=== PATIENT | female | born 1980 | race Two or more races ===

== ENCOUNTER 2019-07-01 10:42 | Emergency (ER) | payer BC ==
[~2019-07-01] VITALS: Ht 165.1 cm; Wt 80.5 kg
[2019-07-01] MEDS ORDERED: ONDANSETRON PF 4 MG/2 ML VIAL. IVP ONE (11:00)
[2019-07-01] MEDS ORDERED: IV NORMAL SALINE 1,000ML 1,000 ML IV ONE (11:00)
[2019-07-01 11:21] VITALS: BP 159/90
[2019-07-01 11:34] LABS: BASO # 0.1 x10^3/uL (0.0-0.2); BASO % 1 % (0-3); EOS % 0 % (0-3); HEMOGLOBIN 14.4 g/dL (12.0-15.5); LYMPH # 1.7 x10^3/uL (1.0-4.8); LYMPH % 10 % (24-48); MEAN CORPUSCULAR HEMOGLOBIN 31 pg (25-35); MEAN CORPUSCULAR HGB CONC 34 g/dL (31-37); MEAN CORPUSCULAR VOLUME 90 fL (79-100); MONO # 0.7 x10^3/uL (0.0-1.1); MONO % 4 % (0-9); NEUT % 85 % (31-73); PLATELET COUNT 317 x10^3/uL (140-400); RED BLOOD COUNT 4.67 x10^6/uL (3.50-5.40); RED CELL DISTRIBUTION WIDTH 13.4 % (11.5-14.5); WHITE BLOOD COUNT 16.6 x10^3/uL (4.0-11.0)
--- NOTE | 2019-07-01 11:39 | PHYS DOC ---
Adult General Chief Complaint Chief Complaint: VOMITING IN HPI HPI Patient is a 38-year-old G1, P0 estimated 14 weeks gestation who presents with nausea and vomiting for the past 24 hours symptoms began while traveling from [facility] to [place]. Patient was on a flight for 18 hours. Reports motion sickness and likely morning sickness. Patient has been able to keep fluids or food down despite taking scopolamine and Zofran B6 and Unisom. Denies dizziness lightheadedness. Reports only abdominal pain with vomiting. No flank pain. No urinary frequency urgency. No diarrhea. No other acute symptoms or complaints. [] Review of Systems Review of Systems Review of symptoms as per HPI. All other review of symptoms are negative. All other systems were reviewed and found to be within normal limits, except as documented in this note. Current Medications Current Medications Current Medications Medications (Trade) Dose Ordered Sig/Saurav Start Time Stop Time Status Last Admin Dose Admin Ondansetron HCl (Zofran) 8 mg 1X ONCE 07/01/19 11:00 07/01/19 11:21 DC 07/01/19 11:00 8 MG Sodium Chloride 1,000 ml @ 1,000 mls/hr 1X ONCE 07/01/19 11:00 07/01/19 11:59 07/01/19 11:14 1,000 MLS/HR Allergies Allergies Allergies Coded Allergies Type Severity Reaction Last Updated Verified No Known Drug Allergies 07/01/19 No Physical Exam Physical Exam Constitutional: Well developed, well nourished, no acute distress, non-toxic appearance. [] HENT: Normocephalic, atraumatic, bilateral external ears normal, oropharynx moist,, nose normal. [] Eyes: PERRLA, EOMI, conjunctiva normal, no discharge. [] Neck: Normal range of motion, no tenderness, supple, no stridor. [] Cardiovascular:Heart rate regular rhythm, no murmur [] Lungs & Thorax: Bilateral breath sounds clear to auscultation [] Abdomen: Bowel sounds normal, soft, no tenderness. [] Skin: Warm, dry, no erythema, no rash. [] Back: No tenderness. [] Extremities: No tenderness, no edema. [] Neurologic: Alert and oriented X 3, normal motor function, normal sensory function, no focal deficits noted. [] Psychologic: Affect normal, judgement normal, mood normal. [] EKG EKG [] Radiology/Procedures Radiology/Procedures [] Course & Med Decision Making Course & Med Decision Making Pertinent Labs and Imaging studies reviewed. (See chart for details) [IV fluids antiemetics given. Patient able to tolerate oral intake. Abdomen soft nontender. Labs reviewed and reassuring. We will continue supportive treatment with PCP/OB follow-up. Return precautions reviewed] Dragon Disclaimer Dragon Disclaimer This electronic medical record was generated, in whole or in part, using a voice recognition dictation system. Departure Departure: Impression: Primary Impression: Abdominal pain Additional Impression: Nausea & vomiting Disposition: 01 HOME, SELF-CARE Condition: STABLE Referrals: [facility] (PCP) Patient Instructions: Nausea and Vomiting, [id number] Additional Instructions: Please continue home nausea medications. Drink clear liquids and advance to soft mechanical diet as tolerated. Follow-up with your local PCP and/or OB as scheduled. Return to the ED if new or worsening symptoms Problem Qualifiers PAT INGRAM DO Jul 01, 2019 11:39
[2019-07-01 11:41] LABS: CALCIUM 8.9 mg/dL (8.5-10.1); CREATININE 0.5 mg/dL (0.6-1.0); GFR 136.6; POTASSIUM 3.3 mmol/L (3.5-5.1)
[2019-07-01 11:49] LABS: ALBUMIN 3.4 g/dL (3.4-5.0); ALBUMIN/GLOBULIN RATIO 0.9 (1.0-1.7); TOTAL BILIRUBIN 0.4 mg/dL (0.2-1.0); TOTAL PROTEIN 7.2 g/dL (6.4-8.2)
[2019-07-01 13:27] LABS: % BANDS 1 % (0-9); % LYMPHS 13 % (24-48); % MONOS 3 % (0-10); % SEGS 83 % (35-66)
[2019-07-01 13:28] LABS: PLT ESTIMATE ADEQUATE (ADEQUATE)
== END 2019-07-01 12:52 | disposition home or self-care (01) ==
LOC: ER 10:42
DX: O21.9 Vomiting of pregnancy, unspecified (principal); R10.9 Unspecified abdominal pain; Z3A.14 14 weeks gestation of pregnancy
CPT/HCPCS: 36415; 80053; 85007; 85025; 96361; 96374; 99283; J2405; J7030